=== PATIENT | female | born 1945 | race Caucasian/White ===

== ENCOUNTER 2016-08-04 17:52 | Emergency (ER) | payer MEDICARE ==
--- NOTE | 2016-08-04 18:32 | Emergency Department Record ---
History of Present Illness - General Source: Patient Mode of Arrival: Ambulatory Limitations: No limitations - History of Present Illness Initial comments: 70 yo female presents to ED with a CC of lower extremity swelling and pain for the past 3 days. Patient was under the impression that she has cellulitis, but denies redness or fever symptoms. Patient denies shortness of breath or history of CHF. Patient denies history of DVT. MD Complaint: Extremity pain, Extremity swelling Onset/Timin -: Days(s) Location: Right, Lower Leg History of Same: Yes -: Yes Arthralgia Radiation: None Quality: Aching Consistency: Constant Improves with: Nothing Worsens with: Nothing Associated Symptoms: Denies other symptoms <DIANA GAINES - Last Filed: 08/04/16 18:28> <PHANI MARISCAL - Last Filed: 08/04/16 20:30> - General Chief complaint: Extremity Problem Stated complaint: RIGHT LEG CELLULITIS Time Seen by Provider: 08/04/16 18:25 - Related Data Home Medications Medication Instructions Recorded Confirmed Last Taken Multivitamin [Multi-Vitamin Daily] 1 each PO DAILY 04/10/15 08/04/16 08/04/16 Cholecalciferol (Vitamin D3) 5,000 unit PO DAILY tab 11/16/15 08/04/16 08/04/16 [Vitamin D3] Previous Rx's Medication Instructions Recorded Cephalexin [Keflex] 500 mg PO TID #21 cap 08/04/16 Allergies Allergy/AdvReac Type Severity Reaction Status Date / Time No Known Drug Allergies Allergy Verified 08/04/16 18:09 Travel Screening - Travel/Exposure Within Last 30 Days Have you traveled within the last 30 days?: No - Travel/Exposure Within Last Year Have you traveled outside the [place] in the last year?: No - Additonal Travel Details Have you been exposed to anyone with a communicable illness?: No - Travel Symptoms Symptom Screening: None <DIANA GAINES - Last Filed: 08/04/16 18:28> Review of Systems Constitutional: Denies: Chills, Fever, Malaise, Night sweats Eyes: Denies: Eye discharge, Eye pain ENT: Denies: Congestion, Ear pain, Epistaxis Respiratory: Denies: Cough, Dyspnea Cardiovascular: Denies: Chest pain, Dyspnea on exertion Endocrine: Denies: Fatigue, Heat or cold intolerance Gastrointestinal: Denies: Abdominal pain, Nausea, Vomiting Genitourinary: Denies: Dysuria, Frequency, Hematuria, Incontinence Musculoskeletal: Reports: Arthralgia. Denies: Back pain, Gout, Joint swelling Skin: Denies: Bruising, Change in color, Change in hair/nails, Pruritus, Rash Neurological: Denies: Abnormal gait, Confusion, Headache, Seizure Psychiatric: Denies: Anxiety Hematological/Lymphatic: Denies: Anemia, Blood Clots <DIANA GAINES - Last Filed: 08/04/16 18:28> Past Medical History - SOCIAL HISTORY Smoking Status: Former smoker Alcohol Use: Occassional Drug Use: None - RESPIRATORY Hx Respiratory Disorders: No - CARDIOVASCULAR Hx Cardio Disorders: Yes Hx Hypertension: Yes - NEURO Hx Neuro Disorders: No - GI Hx GI Disorders: Yes Hx Reflux: Yes Hx Hepatitis/Jaundice: Yes (1963 - Jaundice) - Hx Genitourinary Disorders: No - ENDOCRINE Hx Endocrine Disorders: No - MUSCULOSKELETAL Hx Musculoskeletal Disorders: Yes Hx Arthritis: Yes - PSYCH Hx Psych Problems: Yes Hx Depression: Yes - HEMATOLOGY/ONCOLOGY Hx Hematology/Oncology Disorders: No <DIANA GAINES - Last Filed: 08/04/16 18:28> Family Medical History Any Significant Family History?: Yes Hx Seizures: Mother Hx Stroke: Father <DIANA GAINES - Last Filed: 08/04/16 18:28> Physical Exam - General General Appearance: Alert, Oriented x3, Cooperative, No acute distress Limitations: No limitations - Head Head exam: Atraumatic, Normocephalic, Normal inspection Head exam detail: negative: Abrasion, Contusion, Fraire's sign, General tenderness, Hematoma, Laceration - Eye Eye exam: Normal appearance. negative: Conjunctival injection, Periorbital swelling, Periorbital tenderness, Scleral icterus - ENT Ear exam: negative: Auricular hematoma, Auricular trauma Nasal Exam: negative: Active bleeding, Discharge, Dried blood, Foreign body Mouth exam: negative: Drooling, Laceration, Muffled voice, Tongue elevation - Neck Neck exam: Normal inspection. negative: Meningismus, Tenderness - Respiratory Respiratory exam: Normal lung sounds bilaterally. negative: Rales, Respiratory distress, Rhonchi, Stridor - Cardiovascular Cardiovascular Exam: Regular rate, Normal rhythm, Normal heart sounds - GI/Abdominal GI/Abdominal exam: Soft. negative: Rebound, Rigid, Tenderness - Rectal Rectal exam: Deferred - exam: Deferred - Extremities Extremities exam: Calf tenderness, Pedal edema. negative: Tenderness - Back Back exam: Denies: CVA tenderness (R), CVA tenderness (L) - Neurological Neurological exam: Alert, Normal gait, Oriented X3 - Psychiatric Psychiatric exam: Normal affect, Normal mood - Skin Skin exam: Normal color. negative: Abrasion Type of lesion: negative: abrasion <DIANA GAINES - Last Filed: 08/04/16 18:28> Course Vital Signs 08/04/16 18:11 Temperature 97.7 F Pulse Rate 78 Respiratory 18 Rate Blood Pressure 142/96 Pulse Ox 97 <DIANA GAINES - Last Filed: 08/04/16 18:28> Vital Signs 08/04/16 18:11 Temperature 97.7 F Pulse Rate 78 Respiratory 18 Rate Blood Pressure 142/96 Pulse Ox 97 - Reevaluation(s) Reevaluation #1: The venous doppler report of the lower extremities is negative for DVT The patient was mason and examined She has very mild right lower lateral warmth, minimal faint erythema She will be placed on keflex and instructed on home care and reasons to return as well as close follow up 08/04/16 20:23 <PHANI MARISCAL - Last Filed: 08/04/16 20:30> Medical Decision Making - Lab Data Result diagrams: 08/04/16 18:26 08/04/16 18:26 <DIANA GAIENS - Last Filed: 08/04/16 18:28> - Lab Data Result diagrams: 08/04/16 18:34 08/04/16 18:34 Lab Results 08/04/16 08/04/16 Range/Units 18:34 18:34 WBC 5.7 (4.2-12.2) K/uL RBC 4.35 (3.80-5.40) M/uL Hgb 13.4 (11.6-16.0) gm/dl Hct 40.3 (35.0-47.0) % MCV 92.6 (81-97) fl MCH 30.8 (27-33) pg MCHC 33.3 (32-36) g/dl RDW 13.1 (11.5-14.5) % Plt Count 260 (130-400) K/uL MPV 9.1 (7.4-10.4) fl Gran % 59.3 (47-80) % Lymphocytes % 30.2 (16-45) % Monocytes % 8.1 (0-9) % Eosinophils % 1.9 (0-6) % Basophils % 0.5 (0-6) % Sodium 140 (136-145) mmol/L Potassium 3.9 (3.5-5.1) mmol/L Chloride 98 (98-107) mmol/L Carbon Dioxide 30.9 H (22-30) mmol/L Anion Gap 11.1 (7-16) BUN 8 (7-17) mg/dL Creatinine 0.6 (0.52-1.04) mg/dL Estimated GFR > 60 ml/min Random Glucose 99 (70-110) mg/dL Calcium 8.9 (8.5-10.1) mg/dL Total Bilirubin 0.16 L (0.2-1.3) mg/dL AST 43 H (14-36) U/L ALT 42 (9-52) U/L Alkaline Phosphatase 118 (38-126) U/L NT-Pro-B Natriuret Pep 87.20 (<125) pg/mL Total Protein 6.8 (6.3-8.2) gm/dL Albumin 4.1 (3.5-5.0) gm/dL Globulin 2.7 (1.4-4.8) gm/dL Albumin/Globulin Ratio 1.5 (1.1-1.8) <PHANI MARISCAL - Last Filed: 08/04/16 20:30> Disposition <DIANA GAINES - Last Filed: 08/04/16 18:28> Disposition: Discharge Time of Disposition: 20:29 <PHANI MARISCAL - Last Filed: 08/04/16 20:30> Clinical Impression: Right leg swelling Cellulitis Qualifiers: Site of cellulitis: extremity Site of cellulitis of extremity: lower extremity Laterality: right Qualified Code(s): L03.115 - Cellulitis of right lower limb Disposition: Home, Self-Care Condition: (1) Good Instructions: Cellulitis (ED) Additional Instructions: Elevate and avoid weight bearing Keflex 3 times daily Return if worse, fever, redness or concerns Call your doctor Monday for a recheck Prescriptions: Cephalexin [Keflex] 500 mg PO TID #21 cap Forms: Patient Portal Access
[2016-08-04 18:38] LABS: BASO % 0.5 % (0-6); EOS % 1.9 % (0-6); GRAN % 59.3 % (47-80); HEMATOCRIT 40.3 % (35.0-47.0); HEMOGLOBIN 13.4 gm/dl (11.6-16.0); LYMPH % 30.2 % (16-45); MEAN CELL VOLUME 92.6 fl (81-97); MEAN CORPUSCULAR HEMOGLOBIN 30.8 pg (27-33); MEAN CORPUSCULAR HGB CONC 33.3 g/dl (32-36); MEAN PLATELET VOLUME 9.1 fl (7.4-10.4); MONO % 8.1 % (0-9); PLATELET COUNT 260 K/uL (130-400); RED BLOOD COUNT 4.35 M/uL (3.80-5.40); RED CELL DISTRIBUTION WIDTH 13.1 % (11.5-14.5); WHITE BLOOD COUNT W/O DIFF 5.7 K/uL (4.2-12.2)
[2016-08-04 18:56] LABS: ALB/GLOB RATIO 1.5 (1.1-1.8); ALBUMIN 4.1 gm/dL (3.5-5.0); ALKALINE PHOSPHATASE 118 U/L (38-126); ALT/SGPT 42 U/L (9-52); ANION GAP 11.1 (7-16); AST/SGOT 43 U/L (14-36); BILIRUBIN,TOTAL 0.16 mg/dL (0.2-1.3); BLOOD UREA NITROGEN 8 mg/dL (7-17); CARBON DIOXIDE 30.9 mmol/L (22-30); CREATININE 0.6 mg/dL (0.52-1.04); EST GLOMERULAR FILTRATION RATE > 60 ml/min; GLUCOSE,RANDOM 99 mg/dL (70-110); TOTAL PROTEIN 6.8 gm/dL (6.3-8.2)
--- NOTE | 2016-08-10 15:28 | US VENOUS DOPPLER REPORT ---
EXAM: ULTRASOUND VENOUS DOPPLER LOWER EXT SHARDA HISTORY: BILATERAL LOWER EXTREMITY SWELLING. CELLULITIS. TECHNIQUE: Otero-scale, color Doppler, and duplex Doppler examination of the deep venous structures of each lower extremity performed with imaging from the left common femoral vein into the left lower leg. COMPARISON: None. FINDINGS: RIGHT LOWER EXTREMITY: The common femoral vein, greater saphenous vein, deep femoral vein, superficial femoral vein, and popliteal vein are well-visualized, anechoic, compressible, and with normal augmentable venous waveforms. The visualized right lower leg veins also appear patent. LEFT LOWER EXTREMITY: On the left, the common femoral vein, greater saphenous vein, deep femoral vein , superficial femoral vein, and left popliteal vein are anechoic, compressible, and with normal augmentable venous waveforms. The visualized veins of the left lower leg also appear widely patent. IMPRESSION: NO EVIDENCE OF DEEP VENOUS THROMBOSIS WITHIN EITHER LOWER EXTREMITY. JOB NUMBER: [id number] MTDD
== END 2016-08-04 20:54 | disposition home or self-care (01) ==
LOC: ER 17:52
DX: L03.115 Cellulitis of right lower limb (principal); M79.89 Other specified soft tissue disorders; I50.9 Heart failure, unspecified; I10 Essential (primary) hypertension; Z87.891 Personal history of nicotine dependence
CPT/HCPCS: 80053; 83880; 85025; 93970; 99283; 99284